=== PATIENT | female | born 1965 | race Two or more races ===

== ENCOUNTER 2019-09-24 18:05 | Emergency (ER) | payer MEDICAID, OTHER, SELFPAY ==
[~2019-09-24] VITALS: Ht 154.9 cm; Wt 88.7 kg
[2019-09-24 18:17] VITALS: BP 152/104
[2019-09-24] MEDS ORDERED: LIDOCAINE-MPF 1%, 5ML INFIL ONE (19:00)
[2019-09-24] MEDS ORDERED: L.E.T SOLUTION TP ONE (19:00)
[2019-09-24] MEDS ORDERED: LIDOCAINE-MPF 1%, 5ML ONE (19:15)
[2019-09-24] MEDS ORDERED: DIPH,PERTUSS(ACELL),TET VAC/PF 0.5 ML IM-VACC ONE ×2 (19:30→19:37)
--- NOTE | 2019-09-24 19:48 | NUR ---
PA AT BEDSIDE SUTURING
[2019-09-24] MEDS ORDERED: ACETAMINOPHEN 500 MG TABLET ONE (19:59)
[2019-09-24] MEDS ORDERED: ACETAMINOPHEN 500 MG TABLET PO ONE (20:00)
--- NOTE | 2019-09-24 20:06 | NUR ---
PT MEDICATED PER SEP FOR PAIN. TETANUS GIVEN WITH INFO SHEET
== END 2019-09-24 20:50 | disposition home or self-care (01) ==
LOC: ED 19:05
DX: S02.2XXB Fracture of nasal bones, initial encounter for open fracture (principal); S09.90XA Unspecified injury of head, initial encounter; S00.11XA Contusion of right eyelid and periocular area, initial encounter; Y08.89XA Assault by other specified means, initial encounter; Y93.89 Activity, other specified; Y92.098 Other place in other non-institutional residence as the place of occurrence of the external cause; Y99.8 Other external cause status
CPT/HCPCS: 12011; 70450; 70486; 72125; 90471; 90715; 99285